=== PATIENT | female | born 1950 | race Caucasian/White ===

== ENCOUNTER → 2016-06-10 | Emergency (ER) | payer OTHER ==
[~2016-06-10] MED LIST: ONDANSETRON *ODT* 4 MG TABLET ONE; ONDANSETRON *ODT* 4 MG TABLET SL ONE; OXYCODONE/APAP 5/325MG COMBO TABLET ONE; OXYCODONE/APAP 5/325MG COMBO TABLET PO ONE
[2016-06-10 15:06] VITALS: TEMP 98.7; BMI 29.2
--- NOTE | 2016-06-10 15:33 | PDOC ---
History of Present Illness - General History Source: Patient Exam Limitations: No Limitations - History of Present Illness Initial Comments: 06/10/16 15:33 The patient is a 65 year old female with a significant past medical history of TKR 5 days ago, presenting to the Emergency Department with left lower leg swelling. The patient reports that she had a total left knee replacement at [facility] on 06/05. She reports that she was discharged from the hospital yesterday. She reports that today a nurse came to her home and was concerned about how swollen her left ankle and foot were. The patient reports that her left foot and ankle are much more swollen than they were when leaving the hospital. The patient reports that her thigh and knee are very swollen, but that the swelling is equivalent to when she left the hospital. She is currently on Aspirin, and is taking Percocet for the pain. She reports that her pain today is from her thigh all the way down to her foot, which is a different pain from what she has been experiencing. She admits that before leaving the hospital she had an ultrasound done on her left leg which was negative. She denies having a fever. The patient denies nausea, vomiting, and diarrhea. Patient denies numbness or tingling to the extremities. Patient denies fever, chills, and cough. Patient denies headache, dizziness, and blurry vision. Surgical Hx: left TKR 06/05 [facility] <Delmis Jacques - Last Filed: 06/10/16 18:20> <Sander Bridges - Last Filed: 06/10/16 18:29> - General Chief Complaint: Edema Stated Complaint: RT LEG SWELLING Time Seen by Provider: 06/10/16 15:16 Past History <Delmis Jacques - Last Filed: 06/10/16 18:20> - Past Medical History Anemia: No Asthma: No Cancer: No Cardiac Disorders: No CVA: No COPD: No CHF: No Dementia: No Diabetes: No GI Disorders: No Disorders: No HTN: No Hypercholesterolemia: No Liver Disease: No Seizures: No Thyroid Disease: Yes - Surgical History Abdominal Surgery: Yes (HERNIA X2) Cholecystectomy: Yes Orthopedic Surgery: Yes (DAY ARTHROSCOPIES) - Psycho/Social/Smoking Cessation Hx Anxiety: No Suicidal Ideation: No Smoking History: Never smoked Have you smoked in the past 12 months: No Information on smoking cessation initiated: No Hx Alcohol Use: No Drug/Substance Use Hx: No Substance Use Type: None Hx Substance Use Treatment: No <Sander Bridges - Last Filed: 06/10/16 18:29> - Past Medical History Allergies/Adverse Reactions: Allergies Allergy/AdvReac Type Severity Reaction Status Date / Time No Known Drug Allergies Allergy Unknown Verified 06/10/16 14:59 SEASONAL Allergy Uncoded 06/10/16 14:59 Home Medications: Ambulatory Orders Ascorbate Calcium [Vitamin C] 500 mg PO DAILY 08/30/14 Calcium 500 mg PO TID 08/30/14 Cholecalciferol (Vitamin D3) [Vitamin D3] 2,000 unit PO DAILY 08/30/14 Krill/Om-3/Dha/Epa/Phospho/Ast [Krill Oil 1,000 mg Softgel] 800 each PO DAILY Lactobacillus Acidophilus [Probiotic] 1 each PO DAILY 08/30/14 Levothyroxine [Synthroid -] 50 mcg PO DAILY 08/30/14 Multivitamins [Multivit ([facility] Formulary)] 1 tab PO DAILY 08/30/14 [place]-3 Fatty Acids [Fish Oil] 300 mg PO DAILY 08/30/14 Ubidecarenone [Coq-10] 100 mg PO DAILY 08/30/14 Venlafaxine HCl [Effexor -] 75 mg PO DAILY 08/30/14 Review of Systems - Review of Systems Able to Perform ROS?: Yes Comments:: 06/10/16 15:34 GENERAL/CONSTITUTIONAL: No fever or chills. No weakness. HEAD, EYES, EARS, NOSE AND THROAT: No change in vision. No ear pain or discharge. No sore throat. CARDIOVASCULAR: No chest pain or shortness of breath. RESPIRATORY: No cough, wheezing, or hemoptysis. GASTROINTESTINAL: No nausea, vomiting, diarrhea or constipation. GENITOURINARY: No dysuria, frequency, or change in urination. MUSCULOSKELETAL: + left thigh swelling, + left thigh bruising, + left knee swelling, + left foot and ankle swelling, + post-op incision. No neck or back pain. SKIN: No rash NEUROLOGIC: No headache, vertigo, loss of consciousness, or change in strength/ sensation. ENDOCRINE: No increased thirst. No abnormal weight change. HEMATOLOGIC/LYMPHATIC: No anemia, easy bleeding, or history of blood clots. ALLERGIC/IMMUNOLOGIC: No hives or skin allergy. <Delmis Jacques - Last Filed: 06/10/16 18:20> *Physical Exam - Vital Signs Last Vital Signs Temp Pulse Resp BP Pulse Ox 98.7 F 74 18 150/80 99 06/10/16 15:02 06/10/16 15:02 06/10/16 15:02 06/10/16 15:02 06/10/16 15:02 - Physical Exam Comments: 06/10/16 15:35 GENERAL: Awake, alert, and fully oriented, in no acute distress, ambulating in wheelchair HEAD: No signs of trauma EYES: PERRLA, EOMI, sclera anicteric, conjunctiva clear ENT: Auricles normal inspection, hearing grossly normal, nares patent, oropharynx clear without exudates. Moist mucosa NECK: Normal ROM, supple, no lymphadenopathy, JVD, or masses LUNGS: Breath sounds equal, clear to auscultation bilaterally. No wheezes, and no crackles HEART: Regular rate and rhythm, normal S1 and S2, no murmurs, rubs or gallops ABDOMEN: Soft, nontender, normoactive bowel sounds. No guarding, no rebound. No masses EXTREMITIES: Markedly swollen left lower extremity, suture line intact. Not red , warm, or tender. Left lower extremity is at least 1.5 x larger than right lower extremity. No clubbing or cyanosis. No cords, or erythema NEUROLOGICAL: Cranial nerves II through XII grossly intact. Normal speech SKIN: Warm, Dry, normal turgor, no rashes or lesions noted. <Delmis Jacques - Last Filed: 06/10/16 18:20> - Vital Signs Last Vital Signs Temp Pulse Resp BP Pulse Ox 98.7 F 74 18 150/80 99 06/10/16 15:02 06/10/16 15:02 06/10/16 15:02 06/10/16 15:02 06/10/16 15:02 <Sander Bridges - Last Filed: 06/10/16 18:29> ED Treatment Course - LABORATORY CBC & Chemistry Diagram: 06/10/16 16:00 06/10/16 16:00 - RADIOLOGY Radiograph Interpretation: 06/10/16 18:20 Leg Ultrasound As reviewed by Dr. Boucher Panchal Impression: No evidence of DVT <Delmis Jacques - Last Filed: 06/10/16 18:20> - LABORATORY CBC & Chemistry Diagram: 06/10/16 16:00 06/10/16 16:00 <Sander Bridges - Last Filed: 06/10/16 18:29> *DC/Admit/Observation/Transfer - Attestations Scribe Attestion: 06/10/16 15:37 Documentation prepared by Delmis Jacques, acting as diagnostic medical sonographer for Sander Bridges DO. <Delmis Jacques - Last Filed: 06/10/16 18:20> - Discharge Dispostion Admit: No - Attestations Physician Attestion: 06/10/16 15:26 I, Dr. Sander Bridges, attest that this document has been prepared under my direction and personally reviewed by me in its entirety. I further attest, that it accurately reflects all work, treatment, procedures and medical decision -making performed by me. <Sander Bridges - Last Filed: 06/10/16 18:29> Diagnosis at time of Disposition: Postoperative edema - Discharge Dispostion Disposition: HOME Condition at time of disposition: Good - Patient Instructions Printed Discharge Instructions: DI for Dependent Edema Additional Instructions: Please elevate your leg as much as possible. Let your surgeon know that you were here and that we did not find a blood clot. You can read your labs and reports to him if need be. Best- Dr. Sander Bridges
[2016-06-10 16:13] LABS: BASOPHIL 1.2 % (0-2.0); EOSINOPHIL 2.5 % (0-4.5); MCHC 33.5 g/dl (32.0-36.0); MEAN CELL VOLUME 95.7 fl (80-96); MEAN PLT VOLUME 7.7 fl (7.5-11.1); NEUTROPHILS 61.7 % (42.8-82.8); PLATELET COUNT 270 K/MM3 (134-434); RDW 14.1 % (11.6-15.6); WHITE BLOOD COUNT 6.5 K/mm3 (4.0-10.0)
[2016-06-10 16:21] LABS: INR 0.93 (0.82-1.09); PROTHROMBIN TIME (PATIENT) 10.2 SEC (9.98-11.88)
[2016-06-10 16:38] LABS: ALK PHOS 196 U/L (45-117); ANION GAP 9 (8-16); BILIRUBIN,TOTAL 0.5 mg/dL (0.2-1.0); CALCIUM 8.3 mg/dL (8.5-10.1); CO2 25 mmol/L (21-32); CREATININE 0.7 mg/dL (0.55-1.02); GLUCOSE,RANDOM 134 mg/dL (74-106); SGOT/AST 72 U/L (15-37); SGPT/ALT 72 U/L (12-78); TOT PROT 5.7 g/dl (6.4-8.2)
[2016-06-10 18:48] VITALS: BP 145/75; PULSE 72
== END | disposition home or self-care (01) ==
LOC: JER 14:56
DX: M96.89 Other intraoperative and postprocedural complications and disorders of the musculoskeletal system (principal); Z96.652 Presence of left artificial knee joint
CPT/HCPCS: 36415; 73560-TC-RT; 80053; 83605; 85025; 85610; 87040; 93971-TC; 99285-25

== ENCOUNTER 2022-09-01 18:01 | Inpatient (IN) | payer OTHER ==
[2022-09-01 18:51] LABS: BASO % 0.7 % (0-2.0); EOS % 0.5 % (0-4.5); HEMATOCRIT 44.9 % (32.4-45.2); HEMOGLOBIN 14.7 GM/dL (10.7-15.3); LYMPH % 17.5 % (8-40); MCH 26.9 pg (25.7-33.7); MCHC 32.7 g/dl (32.0-36.0); MEAN CELL VOLUME 82.2 fl (80-96); MEAN PLT VOLUME 7.2 fl (7.5-11.1); MONO % 7.7 % (3.8-10.2); NEUT % 73.6 % (42.8-82.8); PLATELET COUNT 270 10^3/uL (134-434); RBC 5.46 M/mm3 (3.60-5.2); WHITE BLOOD COUNT 7.7 K/mm3 (4.0-10.0)
[2022-09-01 19:00] LABS: PROTHROMBIN TIME (PATIENT) 11.6 SEC (9.7-13.0)
[2022-09-01 19:02] LABS: ACTIVATED PTT 33.5 SECONDS (25.2-36.5)
[2022-09-01] MEDS ORDERED: ACETAMINOPHEN 1000 MG/100 ML BAG IVPB ONE (19:09)
[2022-09-01] MEDS ORDERED: METOCLOPRAMIDE HCL INJECTION 10 MG/2 ML VIAL IVPB ONE (19:09)
[2022-09-01] MEDS ORDERED: SODIUM CHLORIDE 0.9% 500 ML INFUS.BAG IV ONE (19:11)
[2022-09-01 19:19] LABS: ANISOCYTOSIS 3+; MACROCYTOSIS 0; OVALOCYTE 1+
[2022-09-01] MEDS ORDERED: METOCLOPRAMIDE HCL INJECTION 10 MG/2 ML VIAL ONE (19:27)
[2022-09-01] MEDS ORDERED: ACETAMINOPHEN INJECTION 100 ML IVPB ONE (19:27)
[2022-09-01 19:54] LABS: POTASSIUM 3.8 mmol/L (3.5-5.1)
[2022-09-01 19:58] LABS: BLOOD UREA NITROGEN 11.9 mg/dL (7-18)
[2022-09-01 20:01] LABS: CREATININE 0.9 mg/dL (0.55-1.3)
[2022-09-01 20:02] LABS: BILIRUBIN,TOTAL 0.1 mg/dL (0.2-1); TOT PROT 7.4 g/dl (6.4-8.2)
[2022-09-01] MEDS ORDERED: ASPIRIN 325 MG TABLET PO ONE (22:13)
[2022-09-01] MEDS ORDERED: ATORVASTATIN CA 40 MG TABLET (FP) PO SCH (22:17)
[2022-09-01] MEDS ORDERED: ATORVASTATIN CA 40 MG TABLET (FP) ONE (22:21)
[2022-09-01] MEDS ORDERED: ASPIRIN 81 MG CHEWABLE TABLETS ONE (22:21)
[2022-09-01 22:49] LABS: URINE APPEARANCE CLEAR; URINE BILIRUBIN NEGATIVE (NEGATIVE); URINE COLOR YELLOW; URINE GLUCOSE (UA) NEGATIVE (NEGATIVE); URINE KETONE TRACE (NEGATIVE); URINE LEUK ESTERASE NEGATIVE (NEGATIVE); URINE NITRITE NEGATIVE (NEGATIVE); URINE PROTEIN NEGATIVE (NEGATIVE); URINE UROBILINOGEN 0.2 mg/dL (0.2-1.0)
[2022-09-02 01:22] VITALS: BMI 28.8
[2022-09-02 06:18] VITALS: RESP 18
[2022-09-02] MEDS ORDERED: LEVOTHYROXINE NA 50 MCG TABLET (FP) PO SCH (07:00)
[2022-09-02 09:29] LABS: BASO % 2.5 % (0-2.0); EOS % 2.4 % (0-4.5); HEMATOCRIT 41.3 % (32.4-45.2); HEMOGLOBIN 13.6 GM/dL (10.7-15.3); LYMPH % 31.5 % (8-40); MCH 27.5 pg (25.7-33.7); MCHC 32.9 g/dl (32.0-36.0); MEAN CELL VOLUME 83.5 fl (80-96); MEAN PLT VOLUME 7.9 fl (7.5-11.1); MONO % 9.2 % (3.8-10.2); NEUT % 54.4 % (42.8-82.8); PLATELET COUNT 267 10^3/uL (134-434); RBC 4.94 M/mm3 (3.60-5.2); RDW 26.8 % (11.6-15.6); WHITE BLOOD COUNT 5.4 K/mm3 (4.0-10.0)
[2022-09-02 09:42] LABS: POTASSIUM 3.8 mmol/L (3.5-5.1)
[2022-09-02 09:53] LABS: ALBUMIN 3.5 g/dl (3.4-5.0)
[2022-09-02 09:54] LABS: CALCIUM 8.3 mg/dL (8.5-10.1)
[2022-09-02 09:55] LABS: BLOOD UREA NITROGEN 8.6 mg/dL (7-18); MAGNESIUM 2.2 mg/dL (1.8-2.4)
[2022-09-02 09:56] LABS: CREATININE 0.8 mg/dL (0.55-1.3)
[2022-09-02 09:57] LABS: PHOSPHOROUS 3.5 mg/dL (2.5-4.9)
[2022-09-02 09:58] LABS: BILIRUBIN,TOTAL 0.3 mg/dL (0.2-1); TOT PROT 6.5 g/dl (6.4-8.2)
[2022-09-02] MEDS ORDERED: ENOXAPARIN NA (PORCINE) 40 MG/0.4 ML DISP.SYRIN SQ SCH (10:00)
[2022-09-02] MEDS ORDERED: ASPIRIN 81 MG CHEWABLE TABLETS PO SCH (10:00)
[2022-09-02] MEDS ORDERED: DESVENLAFAXINE 100 MG PO SCH (10:00)
[2022-09-02] MEDS ORDERED: LAMOTRIGINE 50 MG PO SCH (10:00)
[2022-09-02] MEDS ORDERED: LOSARTAN POTASSIUM 50 MG TABLET PO SCH ×2 (10:00→16:00)
[2022-09-02] MEDS ORDERED: FAMOTIDINE 20 MG TABLET PO SCH (10:00)
[2022-09-02 11:15] VITALS: BP 130/84; PULSE 71; TEMP 98.6
== END 2022-09-02 12:41 | disposition home or self-care (01) | DRG 948 ==
LOC: JER 18:01 → JERBED 20:46 → J4S 23:45
PROVIDERS: ADMIT Internal Medicine; ATTEND Internal Medicine
DX: R41.0 Disorientation, unspecified (principal); G45.9 Transient cerebral ischemic attack, unspecified; R41.3 Other amnesia; T41.1X5A Adverse effect of intravenous anesthetics, initial encounter; Y92.89 Other specified places as the place of occurrence of the external cause; I16.0 Hypertensive urgency; I10 Essential (primary) hypertension; E03.9 Hypothyroidism, unspecified; F32.A Depression, unspecified; G43.909 Migraine, unspecified, not intractable, without status migrainosus; K21.9 Gastro-esophageal reflux disease without esophagitis; R00.1 Bradycardia, unspecified
CPT/HCPCS: 36415; 70450-TC; 71045-TC-FY; 80053; 80061; 81003; 82550; 83036; 83735; 84100; 84439; 84443; 84484; 85025; 85610; 85730; 93005; 93010; 99285-25

== ENCOUNTER 2023-01-31 14:03 | Observation (INO) | payer OTHER ==
[2023-01-31 14:48] VITALS: BMI 28.2
[2023-01-31] MEDS ORDERED: ACETAMINOPHEN 1000 MG/100 ML BAG IVPB ONE (15:09)
[2023-01-31] MEDS ORDERED: METOCLOPRAMIDE HCL INJECTION 10 MG/2 ML VIAL IVPUSH ONE (15:09)
[2023-01-31] MEDS ORDERED: METOCLOPRAMIDE HCL INJECTION 10 MG/2 ML VIAL ONE (15:11)
[2023-01-31] MEDS ORDERED: ACETAMINOPHEN INJECTION 100 ML IVPB ONE (15:12)
[2023-01-31] MEDS ORDERED: ACETAMINOPHEN 325 MG TABLET (FP) PO ONE (15:15)
[2023-01-31] MEDS ORDERED: ONDANSETRON 4 MG TABLET PO ONE (15:16)
[2023-01-31] MEDS ORDERED: ONDANSETRON 8 MG TABLET (FP) PO ONE (15:21)
[2023-01-31] MEDS ORDERED: ACETAMINOPHEN 325 MG TABLET (FP) ONE (15:21)
[2023-01-31 15:31] LABS: BASO % 3.2 % (0-2.0); EOS % 1.5 % (0-4.5); HEMATOCRIT 47.2 % (32.4-45.2); HEMOGLOBIN 15.8 GM/dL (10.7-15.3); LYMPH % 20.5 % (8-40); MCH 32.2 pg (25.7-33.7); MCHC 33.6 g/dl (32.0-36.0); MEAN PLT VOLUME 7.2 fl (7.5-11.1); MONO % 8.5 % (3.8-10.2); NEUT % 66.3 % (42.8-82.8); PLATELET COUNT 304 10^3/uL (134-434); RBC 4.91 M/mm3 (3.60-5.2); RDW 13.1 % (11.6-15.6); WHITE BLOOD COUNT 7.6 K/mm3 (4.0-10.0)
[2023-01-31 15:37] LABS: INR 0.96 (0.83-1.09); PROTHROMBIN TIME (PATIENT) 11.1 SEC (9.7-13.0)
[2023-01-31 15:40] LABS: ACTIVATED PTT 32.8 SECONDS (25.2-36.5)
[2023-01-31 15:54] LABS: POTASSIUM 4.4 mmol/L (3.5-5.1)
[2023-01-31 15:55] LABS: CALCIUM 9.9 mg/dL (8.5-10.1)
[2023-01-31 15:56] LABS: ALBUMIN 4.1 g/dl (3.4-5.0)
[2023-01-31 15:57] LABS: BLOOD UREA NITROGEN 11.6 mg/dL (7-18)
[2023-01-31 16:01] LABS: TOT PROT 7.2 g/dl (6.4-8.2)
[2023-01-31 16:02] LABS: BILIRUBIN,TOTAL 0.5 mg/dL (0.2-1)
[2023-01-31 16:21] LABS: CREATININE 0.9 mg/dL (0.55-1.3)
[2023-01-31 17:12] LABS: PH,URINE 8.5 (5.0-8.0); URINE APPEARANCE CLEAR; URINE BILIRUBIN NEGATIVE (NEGATIVE); URINE COLOR YELLOW; URINE GLUCOSE (UA) NEGATIVE (NEGATIVE); URINE KETONE NEGATIVE (NEGATIVE); URINE LEUK ESTERASE NEGATIVE (NEGATIVE); URINE NITRITE NEGATIVE (NEGATIVE); URINE PROTEIN NEGATIVE (NEGATIVE); URINE UROBILINOGEN 0.2 mg/dL (0.2-1.0)
[2023-01-31] MEDS ORDERED: ACETAMINOPHEN 325 MG TABLET (FP) PO PRN (18:48)
[2023-01-31] MEDS ORDERED: ATORVASTATIN CA 40 MG TABLET (FP) ONE (20:49)
[2023-01-31] MEDS ORDERED: ATORVASTATIN CA 40 MG TABLET (FP) PO SCH (22:00)
[2023-02-01] MEDS ORDERED: ACETAMINOPHEN 325 MG TABLET (FP) ONE (03:33)
[2023-02-01 08:11] LABS: BASO % 2.7 % (0-2.0); EOS % 2.4 % (0-4.5); HEMATOCRIT 43.4 % (32.4-45.2); HEMOGLOBIN 14.6 GM/dL (10.7-15.3); LYMPH % 30.6 % (8-40); MCH 32.4 pg (25.7-33.7); MCHC 33.6 g/dl (32.0-36.0); MEAN CELL VOLUME 96.3 fl (80-96); MEAN PLT VOLUME 6.9 fl (7.5-11.1); MONO % 9.4 % (3.8-10.2); NEUT % 54.9 % (42.8-82.8); PLATELET COUNT 278 10^3/uL (134-434); RBC 4.51 M/mm3 (3.60-5.2); RDW 13.1 % (11.6-15.6); WHITE BLOOD COUNT 6.4 K/mm3 (4.0-10.0)
[2023-02-01 08:34] LABS: POTASSIUM 5.2 mmol/L (3.5-5.1)
[2023-02-01 08:45] LABS: ALBUMIN 3.6 g/dl (3.4-5.0); MAGNESIUM 2.4 mg/dL (1.8-2.4)
[2023-02-01 08:47] LABS: PHOSPHOROUS 4.6 mg/dL (2.5-4.9)
[2023-02-01 08:49] LABS: BILIRUBIN,TOTAL 0.2 mg/dL (0.2-1); TOT PROT 6.6 g/dl (6.4-8.2)
[2023-02-01] MEDS ORDERED: lamoTRIgine 25 MG TABLET ONE (08:49)
[2023-02-01] MEDS ORDERED: ATORVASTATIN CA 40 MG TABLET (FP) PO SCH (09:46)
[2023-02-01] MEDS ORDERED: IBUPROFEN 600 MG TABLET (FP) PO PRN (09:46)
[2023-02-01] MEDS ORDERED: ENOXAPARIN NA (PORCINE) 40 MG/0.4 ML DISP.SYRIN SQ SCH (10:00)
[2023-02-01] MEDS ORDERED: lamoTRIgine 25 MG TABLET PO SCH (10:00)
[2023-02-01] MEDS ORDERED: ASPIRIN 81 MG CHEWABLE TABLETS PO SCH (10:00)
[2023-02-01 10:25] VITALS: BP 139/79; PULSE 63; RESP 18; TEMP 98.2
[2023-02-02] MEDS ORDERED: LEVOTHYROXINE NA 50 MCG TABLET (FP) PO SCH (07:00)
== END 2023-02-01 14:28 | disposition home or self-care (01) ==
LOC: JER 14:03 → JERBED 16:58
PROVIDERS: ADMIT Internal Medicine; ATTEND Internal Medicine
DX: G40.209 Localization-related (focal) (partial) symptomatic epilepsy and epileptic syndromes with complex partial seizures, not intractable, without status epilepticus (principal); R41.82 Altered mental status, unspecified; R41.3 Other amnesia; R51.9 Headache, unspecified; F32.A Depression, unspecified; K21.9 Gastro-esophageal reflux disease without esophagitis; E03.9 Hypothyroidism, unspecified
CPT/HCPCS: 36415; 70450-TC; 70551-TC; 80053; 80061; 81003; 82550; 83036; 83735; 84100; 84484; 85025; 85610; 85730; 86850; 86900; 86901; 93005; 93010; 99285-25; G0378